=== PATIENT | female | born 1995 | race African-American/Black ===

== ENCOUNTER 2016-07-20 18:28 | Emergency (ER) | payer MEDICAID ==
[~2016-07-20] VITALS: Ht 162.6 cm; Wt 60.3 kg
[2016-07-20 19:52] LABS: Basophils # (auto) 0 uL; Basophils % (auto) 0.5 % (0.0-2.0); Eosinophils # (auto) 0.1 uL; Eosinophils % (auto) 1.9 % (0.0-7.0); Hematocrit 39.5 % (36.0-46.0); Hemoglobin 13.4 g/dL (12.2-16.2); Lymphocytes # (auto) 1.8 uL; Lymphocytes % (auto) 25.9 % (10.0-50.0); Mean Corpuscular Hgb Conc. 33.9 g/dL (32.0-36.0); Mean Corpuscular Volume 91.7 fL (80.0-100.0); Mean Platelet Volume 9.4 fL (7.4-10.4); Monocytes # (auto) 0.5 uL; Monocytes % (auto) 7.8 % (0.0-12.0); Neutrophils # (auto) 4.5 uL; Neutrophils % (auto) 63.9 % (37.0-80.0); Platelet Count (auto) 256 10^3/uL (140-450); Red Cell Distribution Width 13.5 % (11.6-16.0)
[2016-07-20] MEDS ORDERED: SODIUM CHLORIDE 0.9% 1,000 ML IV ONE (20:45)
[2016-07-20 21:48] VITALS: BP 114/65
[2016-07-20 22:20] LABS: Urine Bilirubin Negative (Negative); Urine Blood TRACE /uL (Negative); Urine Color Yellow (Yellow); Urine Glucose Normal (Normal); Urine Nitrite Negative (Negative); Urine RBC 1 /hpf (0 - 4); Urine Squamous Epithelial Cell FEW /hpf (<5); Urine Urobilinogen Normal (Negative); Urine pH 6.5 (5.0-8.0)
[2016-07-20 22:21] LABS: Urine Ketone 1+ (Negative)
== END 2016-07-20 22:31 | disposition home or self-care (01) ==
LOC: ER 18:42
DX: O20.0 Threatened abortion (principal); O99.511 Diseases of the respiratory system complicating pregnancy, first trimester; J45.909 Unspecified asthma, uncomplicated; Z3A.13 13 weeks gestation of pregnancy
CPT/HCPCS: 36415; 76801; 81001; 84702; 85025; 96360; 99285; J7030

== ENCOUNTER 2018-03-03 14:18 | Emergency (ER) | payer MEDICAID ==
[~2018-03-03] VITALS: Ht 175.3 cm; Wt 59.0 kg
[2018-03-03] MEDS ORDERED: cefTRIAXone SOD 1,000 MG VL IM ONE (14:30)
[2018-03-03] MEDS ORDERED: methylPREDNISolone SOD SUCC 125 MG/2 ML VL IM ONE (14:30)
[2018-03-03 14:34] VITALS: BP 123/74
[2018-03-03] MEDS ORDERED: SODIUM CHLORIDE 0.9% 500 ML IV ONE (15:00)
[2018-03-03] MEDS ORDERED: cefTRIAXone 1GM/50ML D5W 50 ML IV ONE (15:00)
[2018-03-03] MEDS ORDERED: methylPREDNISolone SOD SUCC 125 MG/2 ML VL IV ONE (15:00)
== END 2018-03-03 16:08 | disposition home or self-care (01) ==
LOC: ER 14:18 → EDBD 14:18 → ER 16:05
DX: J45.901 Unspecified asthma with (acute) exacerbation (principal)
CPT/HCPCS: 71046; 96365; 96375; 99283; J0696; J2930; J7040

== ENCOUNTER 2018-04-18 14:28 | Emergency (ER) | payer MEDICAID ==
[~2018-04-18] VITALS: Ht 162.6 cm; Wt 62.6 kg
[2018-04-18 15:26] VITALS: BP 99/67
== END 2018-04-18 16:12 | disposition home or self-care (01) ==
LOC: ER 14:35
DX: O21.9 Vomiting of pregnancy, unspecified (principal); Z3A.01 Less than 8 weeks gestation of pregnancy
CPT/HCPCS: 81025

== ENCOUNTER 2018-05-12 13:35 | Emergency (ER) | payer MEDICAID ==
[~2018-05-12] VITALS: Ht 162.6 cm; Wt 59.0 kg
[2018-05-12] MEDS ORDERED: PROMETHAZINE HCL 25 MG/ML 1ML IM ONE (14:30)
[2018-05-12 14:34] LABS: Basophils # (auto) 0.1 uL; Eosinophils # (auto) 0.1 uL; Eosinophils % (auto) 2.1 % (0.0-7.0); Hematocrit 41.6 % (36.0-46.0); Hemoglobin 14.5 g/dL (12.2-16.2); Lymphocytes # (auto) 1.8 uL; Mean Corpuscular Hemoglobin 30.9 pg (28.0-32.0); Mean Corpuscular Hgb Conc. 34.9 g/dL (32.0-36.0); Mean Corpuscular Volume 88.6 fL (80.0-100.0); Monocytes # (auto) 0.5 uL; Monocytes % (auto) 8.7 % (0.0-12.0); Neutrophils # (auto) 2.8 uL; Neutrophils % (auto) 53.2 % (37.0-80.0); Nucleated Red Blood Cells % 0.2 %; Platelet Count (auto) 266 10^3/uL (140-450); Red Cell Distribution Width 13.3 % (11.8-14.3); White Blood Cell 5.3 10^3/uL (4.4-10.8)
[2018-05-12 14:48] LABS: Potassium 3.4 mmol/L (3.5-5.1)
[2018-05-12 14:54] LABS: Albumin 3.9 g/dL (3.4-5.0); BUN/Creatinine Ratio 12.1; Bilirubin, Total 0.6 mg/dL (0.2-1.0); Calcium 9.2 mg/dL (8.5-10.1); Total Protein 7.7 g/dL (6.4-8.2)
[2018-05-12 15:08] LABS: Urine Bacteria NONE SEEN /hpf (None Seen); Urine Blood Negative /uL (Negative); Urine Mucus FEW (None Seen); Urine Specific Gravity 1.035 (1.001-1.035); Urine WBC 3 /hpf (0 - 5)
[2018-05-12 16:42] VITALS: BP 109/58
== END 2018-05-12 17:00 | disposition home or self-care (01) ==
LOC: ER 13:35
DX: O21.9 Vomiting of pregnancy, unspecified (principal); O99.511 Diseases of the respiratory system complicating pregnancy, first trimester; J45.909 Unspecified asthma, uncomplicated; Z3A.10 10 weeks gestation of pregnancy
CPT/HCPCS: 36415; 76805; 80053; 81001; 85025; 96372; 99284; J2550

== ENCOUNTER 2020-01-14 07:08 | Emergency (ER) | payer MEDICAID ==
[~2020-01-14] VITALS: Ht 162.6 cm; Wt 55.8 kg
[2020-01-14 07:33] VITALS: BP 125/74
== END 2020-01-14 10:18 | disposition home or self-care (01) ==
LOC: ER 07:08
DX: J18.9 Pneumonia, unspecified organism (principal); J06.9 Acute upper respiratory infection, unspecified; J45.909 Unspecified asthma, uncomplicated; Z20.828 Contact with and (suspected) exposure to other viral communicable diseases
CPT/HCPCS: 36415; 71045; 87426

== ENCOUNTER 2023-09-07 10:02 | Emergency (ER) | payer MEDICAID ==
[~2023-09-07] VITALS: Ht 162.6 cm; Wt 66.6 kg
[~2023-09-07 10:02] MED LIST: ALB5IS NEB; ALBUAER3 IN; AZIT500T66 PO; HYDR-3682 PO; PRED20TA2 PO; SERT-377 PO
[2023-09-07 10:37] LABS: Basophils # (auto) 0.1 10 ^3/uL (0-0.2); Basophils % (auto) 0.9 % (0.0-2.0); Eosinophils # (auto) 0.1 10 ^3/uL (0-0.8); Eosinophils % (auto) 2.1 % (0.0-7.0); Hematocrit 41.5 % (36.0-46.0); Hemoglobin 13.9 g/dL (12.2-16.2); Lymphocytes # (auto) 1.5 10 ^3/uL (0.4-5.4); Lymphocytes % (auto) 21.9 % (10.0-50.0); Mean Corpuscular Hemoglobin 30.1 pg (28.0-32.0); Mean Corpuscular Hgb Conc. 33.4 g/dL (32.0-36.0); Mean Corpuscular Volume 90.2 fL (80.0-100.0); Monocytes # (auto) 0.5 10 ^3/uL (0-1.3); Monocytes % (auto) 7.1 % (0.0-12.0); Neutrophils # (auto) 4.7 10 ^3/uL (1.6-8.6); Nucleated Red Blood Cells % 0.1 %; Red Cell Distribution Width 15.3 % (11.8-14.3); White Blood Cell 6.8 10^3/uL (4.4-10.8)
[2023-09-07 10:45] LABS: Urine Bacteria None Seen /hpf (None Seen)
[2023-09-07 11:08] LABS: Urine Blood 3+ /uL (Negative); Urine Clarity Ex.Turbid (Clear); Urine Color Colorless (Yellow); Urine Protein, UAD 1+ (Negative); Urine Specific Gravity 1.018 (1.001-1.035); Urine Urobilinogen Normal (Negative); Urine WBC 1300 /hpf (0 - 5)
[2023-09-07 11:12] LABS: Alanine Aminotransferase 11 U/L (7-40); Albumin 4.5 g/dL (3.2-4.8); Alkaline Phosphatase 77 U/L (46-116); Anion Gap 6 (5-15); Aspartate Aminotransferase 9 U/L (13-40); BUN/Creatinine Ratio 10.2 (10.0-20.0); Bilirubin, Total 0.6 mg/dL (0.2-1.0); Blood Urea Nitrogen 9 mg/dL (9-23); Calcium 9.9 mg/dL (8.7-10.4); Carbon Dioxide 28 mmol/L (20-30); Chloride 106 mmol/L (98-107); Glucose 91 mg/dL (74-106); Sodium 140 mmol/L (136-145); Total Protein 7.2 g/dL (5.7-8.2)
[2023-09-07] MEDS: SODIUM CHLORIDE 0.9% 1,000 ML IV ONE (12:41)
[2023-09-07] MEDS: cefTRIAXone 1GM/50ML D5W 50 ML IV ONE (12:46)
[2023-09-07] MEDS ORDERED: NITR-87 PO (13:44)
[2023-09-07 14:18] VITALS: BP 105/67; PULSE 65; RESP 16; TEMP 98.4; O2SAT 100
[2023-09-07] MEDS: KETOROLAC TROMETH 30 MG/ML 1ML VIAL IV ONE (14:18)
== END 2023-09-07 14:29 | disposition home or self-care (01) ==
LOC: ER 10:02
DX: N39.0 Urinary tract infection, site not specified (principal); R10.2 Pelvic and perineal pain; R10.32 Left lower quadrant pain; Z98.890 Other specified postprocedural states; Z79.899 Other long term (current) drug therapy
CPT/HCPCS: 36415; 74176; 76856; 80053; 81001; 81025; 83605; 83690; 84702; 85025; 96365; 96375; 99285; J0696; J1885

== ENCOUNTER 2025-01-18 06:24 | Emergency (ER) | payer MEDICAID ==
[~2025-01-18] VITALS: Ht 162.6 cm; Wt 145.0 kg
[~2025-01-18 06:24] MED LIST changes: +NITR-87 PO
[2025-01-18 07:45] LABS: Hematocrit 41.1 % (36.0-46.0); Hemoglobin 13.9 g/dL (12.2-16.2); Mean Corpuscular Hemoglobin 30.6 pg (28.0-32.0); Mean Corpuscular Volume 90.8 fL (80.0-100.0); Nucleated Red Blood Cells % 0.0 %
[2025-01-18 07:53] LABS: Alanine Aminotransferase 11 U/L (7-40); Albumin 4.2 g/dL (3.2-4.8); Alkaline Phosphatase 69 U/L (46-116); Anion Gap 10 (5-15); BUN/Creatinine Ratio 11.8 (10.0-20.0); Bilirubin, Total 0.6 mg/dL (0.2-1.0); Blood Urea Nitrogen 10 mg/dL (9-23); Calcium 9.2 mg/dL (8.7-10.4); Carbon Dioxide 24 mmol/L (20-31); Chloride 108 mmol/L (98-107); Glucose 108 mg/dL (74-106); Potassium 3.7 mmol/L (3.5-5.1); Sodium 142 mmol/L (136-145); Total Protein 7.2 g/dL (5.7-8.2)
[2025-01-18 08:28] LABS: Lipase 37 U/L (12-53)
[2025-01-18] MEDS: ONDANSETRON HCL 4 MG/2 ML VIAL IV ONE (09:00)
[2025-01-18] MEDS: SODIUM CHLORIDE 0.9% 2,000 ML IV ONE (09:01)
--- NOTE | 2025-01-18 09:22 | DVH ---
INDICATION: LLQ PAIN TECHNIQUE: Multiple real-time grayscale transabdominal and TV sonographic images along with color and duplex Doppler of the uterus and ovaries were obtained. COMPARISON: US PELVIC on DOS: 09/07/23 FINDINGS: The uterus measures 9 x 6 x 5 cm. The endometrial stripe measures 0.4cm. The right ovary measures 3 x 2 x 2 cm. The left ovary measures 3 x 1 x 3 cm. Subsequent color and duplex Doppler interrogation of the ovaries demonstrated symmetric vascular flow to both ovaries, though this does not exclude the possibility of torsion due to the dual blood supply. IMPRESSION: 1. Grossly unremarkable pelvic ultrasound.
[2025-01-18 09:31] LABS: Urine Protein, UAD TRACE (Negative)
[2025-01-18] MEDS: OMNIPAQUE 12mg/ml 500ml ORAL SOLUTION PO ONE (12:31)
[2025-01-18] MEDS: IOHEXOL 300 MG/ML 100ML BOTTLE IJ ONE (13:18)
--- NOTE | 2025-01-18 13:51 | DVH ---
CLINICAL HISTORY: Rule out diverticulitis TECHNIQUE: CT of the abdomen and pelvis was performed with IV contrast. This exam was performed according to our departmental dose optimization program. Up-to-date CT equipment and radiation dose reduction techniques are utilized as appropriate. CTDI 8.1 DLP 452.5 COMPARISON: US PELVIC on DOS: 01/18/25, US PELVIC on DOS: 09/07/23, CT CT AB PEL WO CON-NO ORAL OR IV on DOS: 09/07/23 FINDINGS: Abdomen/Pelvis: The spleen, pancreas, adrenal glands, kidneys, gallbladder, and liver are unremarkable. The bladder is not well distended and therefore not well evaluated. A surgical clip projects at the left adnexal. The abdominal aorta is normal in course and caliber. There are no significant atherosclerotic calcifications. There is no free intraperitoneal air. There is trace free fluid in the deep pelvis. There is no enlarged abdominal or pelvic lymph node. There is no bowel wall thickening or dilatation. The probably appendix is normal. Regardless, there is no focal inflammatory process in its expected location. There is a moderate mount of stool in the colon. Other: The imaged lower thorax is unremarkable. No acute osseous abnormality is evident. IMPRESSION: No acute abnormality in the abdomen or pelvis. Constipation.
[2025-01-18] MEDS ORDERED: KETOROLAC TROMETH 30 MG/ML 1ML VIAL IV ONE (14:30)
--- NOTE | 2025-01-18 14:35 | ED.PDOC ---
GI ASSESSMENT HPI Comments 30-year-old female presents here with left lower quadrant abdominal pain with nausea vomiting times 12 hours. Patient states she is currently on her menstrual cycle. And does state that her pain is normally worse to the left side. She states however the medications that she took ibuprofen she vomited everything up. Denies any recent cough cold runny nose fever or chills. No diarrhea. Chief Complaint: Abdominal Pain Time Seen by MD: 06:34 Primary Care Provider: DAVID Allergies: Coded Allergies: NO KNOWN ALLERGIES (Unverified , 03/03/18) Home Meds Active Scripts Nitrofurantoin Monohydrate Mac (Macrobid) 100 Mg Cap, 100 MG PO BID for 7 Days, #14 CAP Prov:CHANDLER RECINOS DO 09/07/23 Prednisone (Prednisone) 20 Mg Tab, 40 MG PO DAILY, #10 MG Prov:BRITTANY TELLO MD 02/10/22 Azithromycin (Azithromycin) 500 Mg Tab, 500 MG PO DAILY, #3 TAB Prov:BRITTANY TELLO MD 02/10/22 Albuterol Sulfate (VENTOLIN MDI) 90 Mcg Ih, 90 MCG IN Q6HP PRN, #1 INH Prov:BRITTANY TELLO MD 02/10/22 Albuterol Sulfate (Ventolin) 2.5 Mg/0.5 Ml Nb, 2.5 MG NEB Q4HWA, #90 INH Prov:BRITTANY TELLO MD 02/10/22 Reported Medications Hydroxyzine Hcl (Hydroxyzine Hcl) 25 Mg Tab, 1 TAB PO BID 02/08/22 Sertraline HCl (Sertraline Hydrochloride) 100 Mg Tab, 1.5 TAB PO DAILY 02/08/22 Mode of Arrival: EMS Past Medical History PAST MEDICAL HISTORY: Asthma Surgical History: Denies all surgeries WINCH STRIPPER History: No Pertinent WINCH STRIPPER History Family History Family History: Unknown Social History Smoker: Non-Smoker Alcohol: Denies ETOH Use Drugs: Denies Drug Use Lives In: Home All Other Systems: Reviewed and Negative Physical Exam General Appearance: Moderate Distress, Normal HEENT: Normal ENT Inspection, Pharynx Normal, TMs Normal Neck: Full Range of Motion, Non-Tender, Normal, Normal Inspection Respiratory: Chest Non-Tender, Lungs Clear, No Accessory Muscle Use, No Respiratory Distress, Normal Breath Sounds Cardiovascular: No Edema, No JVD, No Murmur, No Gallop, Normal Peripheral Pulses, Regular Rate/Rhythm Breast Exam: Deferred Gastrointestinal: Tenderness (Left lower quadrant tenderness palpation) Genitalia: Deferred Pelvic: Deferred Rectal: Deferred Extremities: No calf tenderness, Normal capillary refill, Normal inspection, Normal range of motion, Non-tender, No pedal edema Musculoskeletal : Apperance: Normal Neurologic: Alert, No Motor Deficits, Normal Affect, Normal Mood, No Sensory Deficits Cerebellar Function: Normal Reflexes: Normal Skin: Dry, Normal Color, Warm Lymphatic: No Adenopathy Was a procedure done? Was a procedure done?: No GI differential Dx Differential Diagnosis: Kidney Stone, N/A Other Differential Diagnosis Pelvic inflammatory disease, , pyelonephritis, ovarian torsion, UTI, diverticulitis X-Ray, Labs, Meds, VS Vital Signs Date Time Temp Pulse Resp B/P (MAP) Pulse Ox O2 Delivery O2 Flow Rate FiO2 01/18/25 11:31 98.4 57 17 113/73 (86) 99 98.4 01/18/25 07:34 98.4 54 18 108/69 (82) 100 98.4 01/18/25 06:31 99.4 58 16 105/69 100 99.4 Lab Test 01/18/25 07:19 01/18/25 07:15 Range/Units Urine Color Yellow Yellow Urine Clarity Clear Clear Urine pH 5.5 5.0-9.0 Urine Specific Oneco 1.046 H 1.001-1.035 Urine Protein Trace H Negative Urine Ketones Negative Negative Urine Blood 2+ H Negative /uL Urine Nitrite Negative Negative Urine Bilirubin Negative Negative Urine Urobilinogen Normal Negative mg/dL Urine Leukocyte Esterase Negative Negative /uL Urine RBC 105 0 - 4 /hpf Urine Microscopic WBC 4 0-5 /HPF Urine Squamous Epithelial Cells Few <5 /hpf Urine Bacteria None seen None Seen /hpf Urine Mucus Few None Seen Urine Glucose Normal Normal mg/dL Urine Test Negative Negative White Blood Count 6.3 4.4-10.8 10^3/uL Red Blood Count 4.53 4.0-5.20 10^6/uL Hemoglobin 13.9 12.2-16.2 g/dL Hematocrit 41.1 36.0-46.0 % Mean Corpuscular Volume 90.8 80.0-100.0 fL Mean Corpuscular Hemoglobin 30.6 28.0-32.0 pg Mean Corpuscular Hemoglobin Concent 33.7 32.0-36.0 g/dL Red Cell Distribution Width 13.2 11.8-14.3 % Platelet Count 259 140-450 10^3/uL Mean Platelet Volume 9.3 6.9-10.8 fL Neutrophils (%) (Auto) 70.0 37.0-80.0 % Lymphocytes (%) (Auto) 20.8 10.0-50.0 % Monocytes (%) (Auto) 7.7 0.0-12.0 % Eosinophils (%) (Auto) 0.4 0.0-7.0 % Basophils (%) (Auto) 1.1 0.0-2.0 % Neutrophils # (Auto) 4.4 1.6-8.6 10 ^3/uL Lymphocytes # (Auto) 1.3 0.4-5.4 10 ^3/uL Monocytes # (Auto) 0.5 0-1.3 10 ^3/uL Eosinophils # (Auto) 0 0-0.8 10 ^3/uL Basophils # (Auto) 0.1 0-0.2 10 ^3/uL Nucleated Red Blood Cells 0.0 % Sodium Level 142 136-145 mmol/L Potassium Level 3.7 3.5-5.1 mmol/L Chloride Level 108 H 98-107 mmol/L Carbon Dioxide Level 24 20-31 mmol/L Anion Gap 10 5-15 Blood Urea Nitrogen 10 9-23 mg/dL Creatinine 0.85 0.550-1.02 mg/dL Glomerular Filtration Rate Calc 94 >90 mL/min BUN/Creatinine Ratio 11.8 10.0-20.0 Serum Glucose 108 H 74-106 mg/dL Calcium Level 9.2 8.7-10.4 mg/dL Total Bilirubin 0.6 0.2-1.0 mg/dL Aspartate Amino Transferase (AST) 16 13-40 U/L Alanine Aminotransferase (ALT) 11 7-40 U/L Alkaline Phosphatase 69 46-116 U/L Total Protein 7.2 5.7-8.2 g/dL Albumin 4.2 3.2-4.8 g/dL Lipase 37 12-53 U/L Current Medications Medications (Trade) Dose Ordered Sig/Ronna Route Start Time Stop Time Status Last Admin Ondansetron HCl (Zofran) 4 mg ONCE ONCE IV 01/18/25 08:00 01/18/25 08:01 DC 01/18/25 09:00 Sodium Chloride 2,000 ml @ 1,000 mls/hr Q2H ONCE IV 01/18/25 08:00 01/18/25 09:59 DC 01/18/25 09:01 30-year-old female presenting left lower quadrant abdominal pain and nausea vomiting. On my examination she is tender to the left lower quadrant. I differential includes torsion and diverticulitis,. I have ordered a CBC, CMP urinalysis, urine , CT abdomen pelvis as well ultrasound the abdomen. At also written for Zofran and IV fluids. CBC CMP returned normal. Urine with trace blood consistent with her current menstrual cycle. Patient is not . Ultrasound with no evidence of torsion. CT abdomen pelvis with no evidence of acute pathology. Does demonstrate evidence of likely constipation. I spoke to the patient, at 2:38 p.m.. Clinically she is feeling much better. I spoke with patient extensively. She does state that when she gets her menstrual cycles it is always worse pain to the left side. I suspect her normal menstrual cycle pain concomitantly with some constipation is likely the cause her pain today. Patient states pain is constant and is not colicky. Considered possible intermittent torsion. However given her pain is not colicky was suspicion at this time. At this time I had given the patient Toradol in the ER. I have discharged her home. Advised her to use MiraLax 1 capful mixed with 8 oz of water daily. Patient agreeable. Advised to return if her symptoms worsen or persist. Time of 1ST Reevaluation: 14:37 Reevaluation 1ST: Improved Patient Education/Counseling: Diagnosis, Treatment Family Education/Counseling: No Family Present SEPSIS Sepsis Screen Date sepsis recognized/suspect: Jan 18, 2025 Time Sepsis recognized/suspect: 741 Recent Procedure: No On Antibiotic Therapy: No Respiratory Rate >20: No Heart Rate >90: No Temp<36 C (96.8 F) or >38.3 C: No SBP <90 or MAP <65 mmHG: No New Acute Mental Status Change: No Is the patient on CPAP, BIPAP,: No Physician Orders Urine (01/18/25 06:43) Ct Abd Pelvis W Con-Oral & Iv (01/18/25 08:00) Pelvic (01/18/25 08:06) Transvaginal Us Non Ob (01/18/25 08:06) Vital Signs Date Time Temp Pulse Resp B/P (MAP) Pulse Ox O2 Delivery O2 Flow Rate FiO2 01/18/25 11:31 98.4 57 17 113/73 (86) 99 98.4 01/18/25 07:34 98.4 54 18 108/69 (82) 100 98.4 01/18/25 06:31 99.4 58 16 105/69 100 99.4 Laboratory Tests Test 01/18/25 07:15 White Blood Count 6.3 10^3/uL (4.4-10.8) Medications Medications Dose Ordered Sig/Ronna Route Start Time Stop Time Status Last Admin Dose Admin Ondansetron HCl 4 mg ONCE ONCE IV 01/18/25 08:00 01/18/25 08:01 DC 01/18/25 09:00 Sodium Chloride 2,000 ml @ 1,000 mls/hr Q2H ONCE IV 01/18/25 08:00 01/18/25 09:59 DC 01/18/25 09:01 Departure 1 Departure Time of Disposition: 14:39 Impression: Primary Impression: Abdominal pain Qualified Codes: R10.32 - Left lower quadrant pain Additional Impression: Constipation Qualified Codes: K59.00 - Constipation, unspecified Disposition: 01 HOME / SELF CARE / HOMELESS Condition: Fair Additional Instructions: Follow up with the primary care physician 2-3 days. Return to ER if symptoms worsen or persist. Take 1 capful of MiraLax daily with 8 oz of water to help with regular bowel movements. Discharged With: Self Critical Care Note Critical Care Time?: No Stability Stability form required: No Heart Score Heart Score: Heart Score Response (Comments) Value History N/A 0 EKG N/A 0 Age N/A 0 Risk Factors N/A 0 Troponin N/A 0 Total 0 CHAYO HERNANDEZ MD Jan 18, 2025 14:35
[2025-01-18 15:00] VITALS: BP 111/72; PULSE 60; RESP 16; TEMP 98.7; O2SAT 100
[2025-01-18] MEDS: KETOROLAC TROMETH 60MG/2ML VIAL IM ONE (15:40)
== END 2025-01-18 16:05 | disposition home or self-care (01) ==
LOC: ER 06:24 → EDUNIT# 06:24 → EDBD 06:24 → ER 16:05
DX: K59.00 Constipation, unspecified (principal); R10.32 Left lower quadrant pain; J45.909 Unspecified asthma, uncomplicated; Z79.899 Other long term (current) drug therapy; Z79.52 Long term (current) use of systemic steroids
CPT/HCPCS: 36415; 74177; 76830; 76856; 80053; 81001; 81025; 83690; 85025; 96361; 96372; 96374; 99285; J1885; J2405; J7030; Q9967